=== PATIENT | female | born 1940 | race Caucasian/White ===

== ENCOUNTER 2018-12-17 07:57 | Day surgery (SDC) | payer MEDICARE, OTHER, SELFPAY ==
[2018-12-17 08:19] VITALS: BP 173/70; PULSE 54; RESP 16; TEMP 35.4; O2SAT 98
[2018-12-17] MEDS: Lactated Ringers 1,000 ML 80 ML IV (08:29)
[2018-12-17] MEDS: ceFAZolin 1 GM/50 ML BAG IVPB (09:48)
[2018-12-17] MEDS: Bupivacaine 0.5% Pres-Free 30 ML VIAL (10:11)
[2018-12-17] MEDS: Lidocaine 1% Pres-Free 5 ML VIAL (10:11)
[2018-12-17] MEDS: Dexamethasone 4 MG/ML VIAL (11:16)
--- NOTE | 2018-12-17 11:29 | W.PM.DSUDISC ---
Discharge Plan Disposition Patient Disposition: HOME Condition: Good Discharge Details Reason For Visit: HAV (R) FOOT Attending Provider: Jeff Mcqueen Primary Care Provider: Teodoro Donovan [place] Meds and New Rx's Prescriptions: No Action atorvastatin 20 MG tablet 20 mg PO HS RF: 0 aspirin [Aspir-81] 81 MG tablet,delayed release (DR/EC) 81 mg PO DAILY RF: 0 calcium-vitamin D3-vitamin K 1 EACH tablet,chewable 1 ea PO DAILY RF: 0 hydrochlorothiazide 12.5 MG tablet 12.5 mg PO DAILY RF: 0 Prilosec 10 MG susp,delayed release for recon 20 mg PO DAILY RF: 0 triamcinolone acetonide 15 GM cream 15 gm Topical BID Qty: 1 RF: 0 bisoprolol fumarate 5 MG tablet 2.5 mg PO DAILY RF: 0 Discharge Instructions Stand Alone Forms: Mary Instructions-DSU, Anderson Epps (DSU) Activity:: Elevate Remove Dressings/Wound Care:: Do Not Remove Shower/Bathe:: Cover Diet:: Normal Diet Discharge Orders Discharge Orders: Discharge Order (Routine); Ordered 12/17/18 Ordered By: Jeff Mcqueen DS: Diagnosis Discharge Diagnosis (1) Hallux valgus of right foot: Status: Acute
[2018-12-17 11:47] VITALS: BP 184/76; PULSE 50; RESP 16; TEMP 36; O2SAT 98
--- NOTE | 2018-12-17 15:31 | ROE_ITS ---
DATE OF PROCEDURE: December 17, 2018 PREOPERATIVE DIAGNOSIS: 1. Symptomatic right hallux abductovalgus deformity. 2. Symptomatic right second hammertoe. POSTOPERATIVE DIAGNOSIS: Same. PROCEDURE: 1. Oscar-type bunionectomy with external K-Wire fixation, 0.062. 2. Arthroplasty right second toe with 0.062 K-Wire fixation. SURGEON: Jeff Mcqueen D.P.M. OPERATIVE INDICATIONS: 78-year-old female with increasing pain associated with a right bunion and se cond hammertoe, interfering with comfortable shoe gear, weightbearing, and ambulation. She understan ds risks and complications of surgery pertaining to pain, scarring, infection, stiffness of the joint , recurrence of deformities, overcorrection, undercorrection, difficulty with hardware, revisional pr ocedures. Informed consent has been obtained. No promises made to the final outcome of surgery. REPORT OF OPERATION: Dionne was brought to the operative suite and placed in the supine position. The right foot was prepped and draped in the usual sterile podiatric fashion. Anesthesia being obtai lucero, the right foot was exsanguinated; a well-padded ankle tourniquet inflated 250 mmHg. Attention was directed to the first MPJ where a 5 cm incision was made medial to the EHL tendon. The incision was deepened in controlled depth fashion. Marked contracture of the lateral joint was appr eciated. A lateral capsulotomy adductor tendon release was performed. The fibular sesamoid was mobi lized and I felt like it might be reducible under the first metatarsal head and left it in place. Attention was now directed to the medial aspect of the joint where an inverted-L capsulotomy was perf ormed. The joint capsule was reflected. The first metatarsal head was delivered into the wound. A large medial enlargement was appreciated. With power instrumentation, the medial hyperostosis was re sected. An offset-V osteotomy was performed. The head was translocated laterally and impacted. Fix ation was obtained through a percutaneous 0.062 K-Wire. The medial shelf was resected; all rough and bony edges rasped smooth. Copious irrigation was performed. The joint capsule medially was repaire d with simple interrupted suture #3-0 Vicryl with a medial capsulorrhaphy being performed. The subcu taneous layer was then brought together with #3-0 Vicryl, going down to a #4-0 Vicryl; and a subcutic ular running stitch of #4-0 Monocryl was used to bring the skin edges together. Correction looked go od. She had good range of motion and good position. Attention was now directed to the second toe where two converging, semi-elliptical incisions were kathy karin over the PIPJ. The skin wedge was removed; soft tissue mobilization performed. A transverse ten otomy capsulotomy was performed at the PIPJ level. Medial and lateral collaterals were released and the head of the proximal phalanx delivered into the wound. Degenerative changes of the articular luca face noted. The head was resected with double-action bone-cutting forceps at its surgical neck; all rough and bony edges rasped smooth. Although there was marked improvement, there was still some cont racture at the MPJ level. A stab incision was placed medial to the EHL tendon over the second MPJ. A #15 blade was inserted; it was placed under the extensor tendon, sharp edge up, the toe was extende d and an extensor tenotomy performed. I then turned the blade, went down over the joint capsule and released the dorsal and medial portions of the joint capsule. The toe was in a more relaxed position at this time. Fixation was obtained through a 0.062 K-Wire in retrograde fashion. Irrigation was p erformed. The extensor tendon was repaired after shortening end-to-end with #3-0 Vicryl; and the ski n was coapted with simple interrupted suture #4-0 Nylon. Four milligrams of dexamethasone phosphate was infused between the two wounds. The tourniquet was released with vascularity returning immediate ly at approximately sixty-five minutes. Dionne left the OR with vital signs stable, vascular status intact. She will be followed by me in the office next week.
== END 2018-12-17 12:16 | disposition home or self-care (01) ==
PROVIDERS: PCP Neuromusculoskeletal Medicine & OMM; Visit Provider Podiatrist
PROC: (CPT 28292; principal; 2018-12-17 10:00)
PROC: (CPT 28296; 2018-12-17 10:00)
DX: M20.11 Hallux valgus (acquired), right foot (principal); M21.611 Bunion of right foot; M20.41 Other hammer toe(s) (acquired), right foot; M79.671 Pain in right foot; I10 Essential (primary) hypertension
CPT/HCPCS: 28296; 28285; J0690; J1100

== ENCOUNTER 2020-06-06 17:18 | Outpatient (REF) | payer MEDICARE, OTHER, SELFPAY | END 2020-06-06 17:38 | LOC: LBN 17:18 | PROVIDERS: PCP Neuromusculoskeletal Medicine & OMM; Visit Provider Obstetrics & Gynecology Gynecology | DX: R30.0 Dysuria (principal); R35.0 Frequency of micturition | CPT/HCPCS: 87086 ==

== ENCOUNTER 2020-09-10 17:54 | Outpatient (REF) | payer MEDICARE, OTHER, SELFPAY | END 2020-09-10 18:14 | LOC: LBN 17:54 | PROVIDERS: PCP Neuromusculoskeletal Medicine & OMM; Visit Provider Nurse Practitioner Family | DX: R30.0 Dysuria (principal) | CPT/HCPCS: 87077; 87086; 87186 ==